=== PATIENT | female | born 1950 | race Caucasian/White ===

== ENCOUNTER → 2021-03-17 11:06 | Outpatient (CLI) | payer MEDICARE, BC, OTHER, SELFPAY | PROVIDERS: Referring Provider Internal Medicine; Visit Provider Internal Medicine | DX: M81.0 Age-related osteoporosis without current pathological fracture (principal); Z78.0 Asymptomatic menopausal state; Z82.62 Family history of osteoporosis | CPT/HCPCS: 77080 ==

== ENCOUNTER → 2022-12-12 15:16 | Outpatient (CLI) | payer MEDICARE, BC, OTHER, SELFPAY ==
[2022-12-12 17:12] LABS: Calcium 10.2 mg/dL (8.4-10.2)
== END ==
PROVIDERS: Referring Provider Nurse Practitioner Family; Visit Provider Nurse Practitioner Family
DX: M81.0 Age-related osteoporosis without current pathological fracture (principal); Z79.899 Other long term (current) drug therapy
CPT/HCPCS: 36415; 82310

== ENCOUNTER → 2023-01-22 10:13 | Outpatient (CLI) | payer MEDICARE, BC, OTHER, SELFPAY ==
--- NOTE | 2023-01-22 10:17 | DI.RAD.S_ITS ---
PROCEDURE: XR THORACIC SPINE 3V INDICATIONS: thoracic back pain TECHNIQUE: 3 views of the thoracic spine were acquired. COMPARISON: [facility], CR, XR LUMBAR SPINE MIN 4V, 01/22/2023, 10:19. Outside Facility, [facility], MRI T-SPINE W/O CONTRAST, 11/02/2022, 17:01. FINDINGS: Bones: No fractures or dislocations. No suspicious bony lesions. 12 pairs of ribs are noted, and appear intact where visualized. Right convexity curvature of the thoracolumbar spine centered at T12-L1. Shaw angle of 47? measured between the superior endplate of T10 and the inferior endplate of L3. Multilevel degenerative changes of the thoracic spine are present. Soft tissues: No paravertebral stripe thickening. IMPRESSION: No thoracic spine vertebral body fracture identified radiographically. Right convexity curvature thoracolumbar spine. If symptoms persist, follow-up radiographs and/or CT or MRI may be helpful for further evaluation. Dictated by: Parish Ruff M.D. on 01/22/2023 at 15:43 Approved by: Parish Ruff M.D. on 01/22/2023 at 15:49
--- NOTE | 2023-01-22 10:17 | DI.RAD.S_ITS ---
PROCEDURE: XR LUMBAR SPINE MIN 4V INDICATIONS: low back pain TECHNIQUE: 5 views of the lumbar spine were acquired, including bilateral oblique views. COMPARISON: [facility], CR, XR THORACIC SPINE 3V, 01/22/2023, 10:19. FINDINGS: Bones: 5 nonrib-bearing vertebrae are present. Right convexity curvature of the thoracolumbar spine as described in the report for same day thoracic radiographs. No definite lumbar vertebral body compression fracture identified, evaluation is challenging due to spine curvature. At least mild multilevel degenerative changes present in the lumbar spine. Soft tissues: Overlying bowel gas pattern is normal. No suspicious soft tissue calcifications. Oblique images: Neural foramina are difficult to evaluate due to curvature of the lumbar spine. Suspect at least mild multilevel bony foraminal narrowing present. IMPRESSION: Right convexity curvature of the thoracolumbar spine, described separately. Curvature makes evaluation of the lumbar spine difficult, no definite lumbar spine vertebral body compression fracture identified. Multilevel degenerative changes of the lumbar spine are present. If symptoms persist, follow-up radiographs and/or CT or MRI may be helpful for further evaluation. Dictated by: Parish Ruff M.D. on 01/22/2023 at 15:49 Approved by: Parish Ruff M.D. on 01/22/2023 at 15:54
== END ==
PROVIDERS: PCP Family Medicine; Referring Provider Anesthesiology; Visit Provider Anesthesiology
DX: M47.816 Spondylosis without myelopathy or radiculopathy, lumbar region (principal); M47.814 Spondylosis without myelopathy or radiculopathy, thoracic region; M54.41 Lumbago with sciatica, right side; M54.6 Pain in thoracic spine; M41.9 Scoliosis, unspecified
CPT/HCPCS: 72072; 72110; 99214

== ENCOUNTER 2023-03-07 09:04 | Outpatient (CLI) | payer MEDICARE, BC, OTHER, SELFPAY ==
--- NOTE | 2023-03-07 09:05 | DI.RAD.S_ITS ---
PROCEDURE: PAIN C/T FACET INJ/BLK 1ST L INDICATIONS: RADICULOPATHY COMPARISON: [facility], CR, XR LUMBAR SPINE MIN 4V, 01/22/2023, 10:19. [facility], CR, XR THORACIC SPINE 3V, 01/22/2023, 10:19. FINDINGS: Fluoroscopic spot filming was performed to verify placement of spinal needles on the right at the levels labeled as T11, T12, and L1. Appropriate location of the needle tips was confirmed by injection of iodinated contrast. IMPRESSION: Intraprocedural examination demonstrating appropriate positions of the needles. Dictated by: Emanuel Kwok M.D. on 03/07/2023 at 19:26 Approved by: Emanuel Kwok M.D. on 03/07/2023 at 19:27
[2023-03-07 09:25] VITALS: BP 159/74; PULSE 78; RESP 16; TEMP 37.2; O2SAT 99
[2023-03-07 09:44] VITALS: BP 186/80; PULSE 64; RESP 19; O2SAT 100
[2023-03-07 09:49] VITALS: BP 163/69; PULSE 69; RESP 14; O2SAT 100
[2023-03-07 09:54] VITALS: BP 167/75; PULSE 65; RESP 19; O2SAT 100
[2023-03-07] MEDS: BUPIVACAINE 0.5% (PF) 10 ML VIAL 5 ML INJ (09:54)
[2023-03-07] MEDS: IOPAMIDOL 15 ML VIAL 3 ML INJ (09:55)
[2023-03-07 10:03] VITALS: BP 138/76; PULSE 82; RESP 16; O2SAT 99
--- NOTE | 2023-03-07 11:26 | P.PCN_ITS ---
Date/Time/Diagnoses Date of procedure: 03/07/23 Time of procedure: 09:30 Procedure Notes Physician: Dyllan Esposito Total Fluoroscopy time (seconds): 20 Total sedation minutes: 0 Procedure in detail & Post-procedure care: Right T11, T12 and L1 Medial Branch Blocks Indications: Vonda is presenting for treatment of thoracolumbar spondylosis with low back pain. Preoperative diagnosis: Right thoracolumbar spondylosis Postoperative diagnosis: Same Pre-procedure History: Patient demonstrates today moderate to severe non- radicular back pain without neurologic deficit aggravated by hyperextension yes Back pain greater than leg pain? yes Patient today has tenderness over the suspected joint(s) yes History of post-traumatic injury? no Hypertrophic arthropathy yes Back pain associated with suspected motion segment instability, hypermobility or pseudoarthrosis no Pre-testing pain score (VAS): 5/10 Focused Examination: Ax3 Mood and affect are normal Vital Signs: VSS Consent: Following review of allergies and potential side effects/complications, including, but not necessarily limited to, infection, allergic reaction, local tissue breakdown, stroke, temporary or permanent nerve injury, paralysis, and possible , the patient indicated that they understood and agreed to proceed.? An informed consent document was signed by the patient, witnessed by a nurse and placed in the patient's chart.? Additionally, other treatment options including medications and physical therapy were reviewed with the patient. All questions were answered. Site was then marked. Anesthesia: Local Position: Prone Monitoring: NIBP, Pulse oximetry, 3 lead EKG Needle used: 22 ga 3.5 inch spinal needle Contrast: Isovue 300M Injectate: 0.5% bupivacaine 1 mL per site Procedure: The patient was brought into the procedure room and positioned into the prone position. Skin was prepped with a Chloraprep solution, allowed to air dry, and then draped in sterile fashion.? The right T12-L1 and L1-2 facet joints were visually identified with fluoroscopy. Lidocaine 1% was used to anesthetize the skin over each target destination with a 25ga needle. A 22 ga, 3.5 inch spinal needle was advanced to the location of the medial branch at the junction of the superior articular process and the transverse process at T12, L1 and L2 using intermittent fluoroscopy in the AP view. Isovue 300M contrast 0.2ml was injected at each level outlining the medial borders for each level in the AP and lateral views. There was no evidence of vascular or intrathecal uptake. The above injectate was slowly injected at each target destination. Post Procedure: Patient was taken to the recovery and monitored. The patient was provided a Pain Log to continue to record the patient's response to the target- specific procedure prior to the patient's follow-up visit with the referring physician. Patient was stable upon discharge. Detailed post procedure instructions were provided. Patient was asked to call in the event of worsening pain, fever, weakness, numbness or bladder or bowel incontinence. Postoperatively, today patient demonstrates the following changes with hyperextension and with tenderness over the suspected joint(s). Provacative testing using the Matthews's facet loading test Right side Directly before the block ?VAS (0-10) = 5/10 5 minutes after the block VAS (0-10) = 0/10 Percentage relief obtained with this diagnostic block 100% Any improved physical functioning directly after the blocks? Range of motion, walking Based on the medial branches blocked today, if the patient meets insurance criteria for radiofrequency, the treatment should result in the denervation of the right T12-L1 and L1-2 facet joint nerves. We would expect to denervate a total of 4 facets during the radiofrequency ablation.
== END 2023-03-07 10:11 | disposition home or self-care (01) ==
LOC: RAD 09:04
PROVIDERS: PCP Family Medicine; Referring Provider Anesthesiology; Visit Provider Anesthesiology
DX: M47.815 Spondylosis without myelopathy or radiculopathy, thoracolumbar region (principal)
CPT/HCPCS: 64490; 64491

== ENCOUNTER → 2023-04-17 11:39 | Outpatient (CLI) | payer MEDICARE, BC, OTHER, SELFPAY ==
--- NOTE | 2023-04-17 | DI.RAD.S_ITS ---
Bone Density Report Name: EVANGELINA LAMB Age: 73 Sex: Female Ethnicity: White Date of : 1950 Indication: osteopenia; monitoring treatment; Referring Provider: LORENZA MCKENZIE Study: Bone densitometry was performed. Exam Date: April 17, 2023 Accession number: [id number] Bone Density: Region BMD T-score Z-score Classification AP Spine(L1-L4) 1.249 1.8 4.0 Normal Femoral Neck (Left) 0.629 -2.0 -0.1 Osteopenia Total Hip (Left) 0.832 -0.9 0.7 Normal Femoral Neck (Right) 0.559 -2.6 -0.8 Osteoporosis Total Hip (Right) 0.739 -1.7 -0.1 Osteopenia Total Hip Mean 0.785 -1.3 0.3 Osteopenia World Health Organization criteria for BMD impression classify patients as: Normal (T-score at or above -1.0), Osteopenia (T-score between -1.0 and -2.5), or Osteoporosis (T-score at or below -2.5). 10-year Fracture Risk: FRAX not reported because: Some T-score for Spine Total or Hip Total or Femoral Neck at or below -2.5 Treated for osteoporosis Previous Exams: -- Region Exam Age BMD T-score BMD Change BMD Change Date g/cm2 vs Baseline vs Previous -- Total Hip(Left) 04/17/2023 73 0.832 -0.9 -0.026 (-3.0%)# -0.026 (-3.0%)# 03/17/2021 70 0.858 -0.7 Total Hip(Right) 04/17/2023 73 0.739 -1.7 0.004 (0.6%)# 0.004 (0.6%)# 03/17/2021 70 0.735 -1.7 -- *Denotes significance at 95% confidence level, LSC for Total Hip = 0.027 g/cm2 # Denotes dissimilar scan types or analysis methods Impression: The patient has osteoporosis, based on the Right Femoral Neck T-score. No significant bone loss was observed. Discussion: PATIENT UNDER TREATMENT WITH NO SIGNIFICANT BMD LOSS SINCE LAST EXAM. In an untreated patient, BMD typically declines with age. A lack of decline or gain is usually a sign that treatment is efficacious and fracture risk is reduced. It is important to ask patients whether they are taking their medications and to encourage continued and appropriate compliance with their osteoporosis therapies to reduce fracture risk. It is also important to review their risk factors and encourage appropriate calcium and vitamin D intakes, exercise, fall prevention and other lifestyle measures. Follow-Up: Consider a repeat BMD and Vertebral Fracture Assessment (VFA) exam in 2 years or sooner if medically necessary, to reassess this patient's status. Reported by: YENI HEARD M.D. on 04/17/2023 12:14:00 PM.
== END ==
PROVIDERS: PCP Family Medicine; Referring Provider Nurse Practitioner Family; Visit Provider Nurse Practitioner Family
DX: M81.0 Age-related osteoporosis without current pathological fracture (principal); Z78.0 Asymptomatic menopausal state; M47.816 Spondylosis without myelopathy or radiculopathy, lumbar region; M47.814 Spondylosis without myelopathy or radiculopathy, thoracic region; M79.18 Myalgia, other site; Z79.899 Other long term (current) drug therapy; Z92.21 Personal history of antineoplastic chemotherapy
CPT/HCPCS: 20553; 76942; 77080; 99213

== ENCOUNTER → 2023-12-18 10:45 | Outpatient (CLI) | payer MEDICARE, BC, OTHER, SELFPAY | PROVIDERS: PCP Family Medicine; Referring Provider Internal Medicine; Visit Provider Internal Medicine | DX: E83.51 Hypocalcemia (principal) | CPT/HCPCS: 36415; 82310 ==

== ENCOUNTER → 2024-04-07 10:46 | Outpatient (CLI) | payer MEDICARE, BC, OTHER, SELFPAY ==
--- NOTE | 2024-04-07 10:47 | DI.RAD.S_ITS ---
PROCEDURE: XR DEXA AXIAL SKELETON INDICATIONS: OSTEOPORISIS SCREENING COMPARISON: [facility], CR, XR DEXA AXIAL SKELETON, 04/17/2023, 12:03. FINDINGS: Lumbar Spine: Bone mineral density 1.365 g/cm2, T score 2.6, compared to 1.8. Left Hip: Bone mineral density 0.835 g/cm2, T score -0.9, unchanged. Left Femoral Neck: Bone mineral density 0.640 g/cm2, T score -1.9, compared to -2.0. Right Hip: Bone mineral density 0.774 g/cm2, T score -1.4, compared to -1.7. Right Femoral Neck: Bone mineral density 0.551 g/cm2, T score -2.7, compared to -2.6. Fracture Risk Calculation (when applicable): 10-year fracture risk of a major osteoporotic fracture 14% and of a hip fracture 4.4% without prior fracture in 22% and 6.6% with prior fracture respectively.. (T score greater or equal to -1.0 to: NORMAL) (T score from -1.1 to -2.4: OSTEOPENIA) (T score less than or equal to -2.5: OSTEOPOROSIS) IMPRESSION: Overall stable/improved bone mineral density compared to prior exam. Follow-up guidelines as follows: Osteoporosis: Consider a repeat DEXA and Vertebral Fracture Assessment (VFA) exam in 2 years or sooner if medically necessary, to reassess this patient's status. Osteopenia: Consider a repeat DEXA in 2-3 years to reassess this patient's status, or if there is a new clinical indication. Normal: Consider a repeat DEXA in 5 years or sooner, or if there is a new clinical indication. All treatment decisions require clinical judgment and consideration of individual patient factors, including patient preferences, comorbidities, previous drug use, risk factors not captured in the FRAX model (e.g., frailty, falls, vitamin D deficiency, increased bone turnover, interval significant decline in bone density ) and possible under- or over-estimation of fracture risk by FRAX. In addition, the NOF Guide recommends that FDA-approved medical therapies be considered in postmenopausal women and men age >= 50 years with a: * Hip or vertebral (clinical or morphometric) fracture * T-score of <=-2.5 at the spine or hip * Ten-year fracture probability by FRAX of >= 3% for hip fracture or >=20% for major osteoporotic fracture. People with diagnosed cases of osteoporosis or at high risk for fracture should have regular bone mineral density tests. For patients eligible for Medicare, routine testing is allowed once every 2 years. The testing frequency can be increased to one year for patients who have rapidly progressing disease, those who are receiving or discontinuing medical therapy to restore bone mass, or have additional risk factors. Dictated by: Holli Chairez M.D. on 04/07/2024 at 21:38 Approved by: Holli Chairez M.D. on 04/07/2024 at 21:39
== END ==
LOC: RAD 10:47
PROVIDERS: PCP Family Medicine; Referring Provider Nurse Practitioner Family; Visit Provider Nurse Practitioner Family
DX: M81.0 Age-related osteoporosis without current pathological fracture (principal); Z79.899 Other long term (current) drug therapy
CPT/HCPCS: 77080

== ENCOUNTER → 2024-12-06 09:51 | Outpatient (CLI) | payer MEDICARE, BC, OTHER, SELFPAY ==
[2024-12-06 10:35] LABS: Add Manual Diff / Slide Review NO; Basophils Absolute Auto 0 /uL (0-100); Basophils Percent Auto 0.9 % (0-2); Eosinophils Absolute Auto 200 /uL (0-450); Eosinophils Percent Auto 3.5 % (2-4); Hematocrit 40.1 % (36-46); Hemoglobin 13.6 g/dL (12.0-16.0); Lymphocytes Absolute Auto 1500 /uL (1100-4500); Lymphocytes Percent Auto 30.6 % (25-40); Mean Corpuscular HGB Conc 33.9 % (30-36); Mean Corpuscular Volume 103.2 fL (80-100); Monocytes Absolute Auto 300 /uL (0-900); Monocytes Percent Auto 6.6 % (3-14); Neutrophils Absolute Auto 2800 /uL (1500-7000); Neutrophils Percent Auto 58.4 % (50-75); Platelet Count 271 X10^3/uL (150-400); Red Blood Cell Count 3.89 X10^6/uL (4.0-5.2); Red Cell Distribution Width 13.3 % (11.6-14.8); White Blood Cell Count 4.8 X10^3/uL (4.5-11.0)
[2024-12-06 10:41] LABS: Prothrombin Time 10.8 SECONDS (9.4-12.5)
[2024-12-06 10:49] LABS: Alanine Aminotransferase 21 IU/L (<35); Albumin 4.5 g/dL (3.5-5.0); Albumin Globulin Ratio 1.9 (1.0-2.8); Alkaline Phosphatase 83 U/L (38-126); Aspartate Aminotransferase 31 IU/L (14-36); BUN Creatinine Ratio 20.9 (6-22); Bilirubin Total 0.8 mg/dL (0.2-1.3); Blood Urea Nitrogen 14 mg/dL (7-17); C-Reactive Protein Quant < 0.5 mg/dL (<1.0); Calcium 10.4 mg/dL (8.4-10.2); Carbon Dioxide 29 mmol/L (22-32); Chloride 101 mmol/L (98-107); Estimated Glomerular Filt Rate > 60 mL/min (>60); Globulin 2.4 g/dL (1.7-4.1); Glucose 88 mg/dL (70-99); HEMOLYSIS < 15 (0-50); Sodium 137 mmol/L (137-145); Total Protein 6.9 g/dL (6.3-8.2)
[2024-12-06 10:51] LABS: Erythrocyte Sedimentation Rate 7 MM/HR (0-20)
[2024-12-06 10:54] LABS: Appearance Urine UA CLEAR; Bilirubin Urine UA NEGATIVE (NEGATIVE); Color Urine UA YELLOW; Glucose Urine UA NEGATIVE (Negative); Ketones Urine UA NEGATIVE (NEGATIVE); Leukocyte Esterase Urine UA NEGATIVE (NEGATIVE); Nitrite Urine UA NEGATIVE (Negative); Occult Blood Urine UA NEGATIVE (Negative); Protein Urine UA NEGATIVE (Negative); Urobilinogen Urine UA 0.2 E.U./dL (0.2)
[2024-12-06 10:55] LABS: Urine Volume 10mL (spun); pH Urine UA 7.5 (4.5-8.0)
[2024-12-06 10:56] LABS: Bacteria Urine None Seen; Culture Indicated Urine Cult Not Indicated; RBC Urine None Seen (0-5/HPF); Squamous Epithelial Cell Urine None Seen (0-5/HPF); WBC Urine None Seen (0-5/HPF)
== END ==
PROVIDERS: PCP Family Medicine; Referring Provider Family Medicine; Visit Provider Family Medicine
DX: Z01.818 Encounter for other preprocedural examination (principal)
CPT/HCPCS: 36415; 80053; 81001; 85025; 85610; 85651; 86140

== ENCOUNTER → 2025-02-17 11:32 | Outpatient (CLI) | payer MEDICARE, BC, OTHER, SELFPAY ==
--- NOTE | 2025-02-17 11:35 | DI.RAD.S_ITS ---
PROCEDURE: XR CHEST 2V INDICATIONS: preop clearance TECHNIQUE: 2 views of the chest were acquired. COMPARISON: None. FINDINGS: Heart, mediastinum and pulmonary vascular: Heart is normal in size and configuration. Mediastinum is unremarkable. Pulmonary vascular is normal. Lungs: Clear Pleural spaces: Normal-no effusions or pneumothorax. IMPRESSION: No cardiopulmonary disease evident. Dictated by: David Luke M.D. on 02/18/2025 at 13:28 Approved by: David Luke M.D. on 02/18/2025 at 13:28
--- NOTE | 2025-02-17 12:24 | EKG_ITS ---
[address] [address] [place] [address] Test Date: 2025-02-17 Pat Name: Vonda Garland Department: [facility] Room: Gender: Female Esol Teacher: SHRUTI : 1950 Requested By: Order Number: [id number] Reading MD: Chava Schuler Measurements Intervals [place] Rate: 74 P: 60 OR: 164 QRS: 48 QRSD: 92 T: 52 QT: 346 QTc: 384 Interpretive Statements Normal sinus rhythm Incomplete right bundle branch block Nonspecific ST abnormality Electronically Signed On 02-18-2025 15:03:04 PDT by Chava Schuler
== END ==
PROVIDERS: PCP Family Medicine; Referring Provider Family Medicine; Visit Provider Family Medicine
DX: Z01.818 Encounter for other preprocedural examination (principal)
CPT/HCPCS: 71046; 93005

== ENCOUNTER → 2025-02-27 15:16 | Outpatient (CLI) | payer MEDICARE, BC, OTHER, SELFPAY ==
--- NOTE | 2025-02-27 15:19 | DI.RAD.S_ITS ---
PROCEDURE: XR SHOULDER RT MIN 2V INDICATIONS: RIGHT SHOULDER PAIN TECHNIQUE: 3 views of the shoulder were acquired. COMPARISON: [facility], CR, XR LUMBAR SPINE MIN 4V, 02/27/2025, 15:16. FINDINGS: Bones: No fractures or dislocations. No suspicious bony lesions. Visualized ribs appear intact. Generalized degenerative changes are seen. Soft tissues: No suspicious soft tissue calcifications. IMPRESSION: Generalized degenerative changes are seen by plain film, without an acute abnormality seen. If it would be helpful for clinical management decision making, please consider a dedicated, scheduled shoulder MRI for further evaluation (assuming that there is no contraindication). Dictated by: Emanuel Kwok M.D. on 02/27/2025 at 14:41 Approved by: Emanuel Kwok M.D. on 02/27/2025 at 14:41
--- NOTE | 2025-02-27 15:19 | DI.RAD.S_ITS ---
PROCEDURE: XR LUMBAR SPINE MIN 4V INDICATIONS: BACK PAIN TECHNIQUE: 5 views of the lumbar spine were acquired, including bilateral oblique views. COMPARISON: [facility], CR, XR SHOULDER RT 2+ VIEWS, 02/27/2025, 15:16. [facility], CR, XR LUMBAR SPINE MIN 4V, 01/22/2023, 10:19. FINDINGS: Bones: 5 nonrib-bearing vertebrae are present. No vertebral body compression fractures. No suspicious bony lesions. Significant dextroconvex scoliosis is seen. Mild retrolisthesis can be seen at L1-L2, L2-L3, and L3-L4. Moderate to severe disc space narrowing can be seen at L1-L2, L2-L3, L3-L4, and L2 L5. Mild disc space narrowing can be seen at L5-S1. Lower lumbar spine facet arthropathy is seen. Soft tissues: Overlying bowel gas pattern is normal. No suspicious soft tissue calcifications. Oblique images: No pars defects. IMPRESSION: Dextroconvex scoliosis and multiple levels of significant degenerative change can be seen by plain film. Dictated by: Emanuel Kwok M.D. on 02/27/2025 at 14:41 Approved by: Emanuel Kwok M.D. on 02/27/2025 at 14:43
== END ==
LOC: RAD 15:18
PROVIDERS: PCP Family Medicine; Referring Provider Physical Medicine & Rehabilitation; Visit Provider Physical Medicine & Rehabilitation
DX: M25.511 Pain in right shoulder (principal); M47.816 Spondylosis without myelopathy or radiculopathy, lumbar region; M99.03 Segmental and somatic dysfunction of lumbar region; M41.9 Scoliosis, unspecified; M19.011 Primary osteoarthritis, right shoulder
CPT/HCPCS: 72110; 73030

== ENCOUNTER → 2025-03-01 14:28 | Outpatient (CLI) | payer MEDICARE, BC, OTHER, SELFPAY ==
--- NOTE | 2025-03-01 14:32 | DI.MRI.S_ITS ---
PROCEDURE: MR THORACIC SPINE WO CON INDICATIONS: SCIATICA TECHNIQUE: Noncontrast sagittal T1 spine echo and T2 fast spin echo, sagittal STIR, and T2 fast spin echo through the thoracic spine. COMPARISON: [facility], XR THORACIC SPINE 3V, 01/22/2023, 10:19. FINDINGS: Image quality: Excellent. Alignment and Curvature: Moderate thoracolumbar dextroscoliosis. Normal AP alignment. Bone Marrow: Marrow is of normal overall signal. No acute vertebral body compression fractures. Mild degenerative endplate spurring at T8-9. Spinal Cord: There is a very thin central syrinx from T7 through T9. The cord is otherwise normal size and signal. Paraspinous Soft Tissues: No paravertebral masses. Miscellaneous: On axial images, there is a small, broad-based, posterior irregular disc bulge at the T8-9 level. Minimal deformity of the spinal cord shape. No significant central canal stenosis. Other thoracic levels are unremarkable. IMPRESSION: Moderate thoracolumbar scoliosis. Very mild progression of degenerative disc and endplate change at T8-9 since the prior exam. Chronic, small central syrinx, unlikely to be clinically significant. Dictated by: Roberta Muhammad M.D. on 03/02/2025 at 15:38 Approved by: Roberta Muhammad M.D. on 03/02/2025 at 15:48
--- NOTE | 2025-03-01 14:32 | DI.MRI.S_ITS ---
PROCEDURE: MR LUMBAR SPINE WO CON INDICATIONS: SCIATICA TECHNIQUE: Noncontrast sagittal T1 spin echo and T2 fast echo, sagittal STIR, and T2 fast spin echo through the lumbar spine. In cases with scoliosis, additional coronal T2 fast spin echo may be performed. COMPARISON: None. FINDINGS: Image quality: Excellent. Alignment and Curvature: Moderate S-shaped roto- scoliosis. The AP alignment is grossly normal. Trace right lateral subluxation L3 on four. Bone Marrow: Type 1 endplate Modic changes at L3-4, as well as bandlike osseous edema in L3 vertebral body. Moderate lateral endplate spurs. Spinal Cord: Conus medullaris terminates at the L1 level. Visualized cord demonstrates normal signal and size. Paraspinous Soft Tissues: No paravertebral masses. T12-L1: Disc desiccation and mild disc height loss with small circumferential disc bulge. Small focal right lateral annular tear without herniation. L1-L2: Disc desiccation with severe disc height loss. Mild to moderate circumferential disc osteophyte without significant disc herniation. L2-L3: Disc desiccation and severe disc height loss. Moderate circumferential disc osteophyte. L3-L4: Disc desiccation and moderate to severe disc height loss. Moderate to severe facet arthropathy. Right lateral recess narrowing and moderate central canal stenosis. Probably severe right foraminal stenosis. L4-L5: Mild asymmetric disc height loss. Prominent right facet arthropathy. Mild circumferential disc bulge. Narrowing of the right central canal and lateral recess due to facet arthropathy. Moderate right foraminal stenosis. L5-S1: Mild facet arthropathy. IMPRESSION: Degenerative appearing scoliosis and moderate to severe multilevel right foraminal and lateral recess narrowing. Moderate central canal stenosis at L3-4. Subacute osseous edema in L3. Dictated by: Roberta Muhammad M.D. on 03/02/2025 at 15:48 Approved by: Roberta Muhammad M.D. on 03/02/2025 at 16:28
== END ==
LOC: MRI 14:29
PROVIDERS: PCP Family Medicine; Referring Provider Family Medicine
DX: M51.14 Intervertebral disc disorders with radiculopathy, thoracic region (principal); G95.0 Syringomyelia and syringobulbia; M51.16 Intervertebral disc disorders with radiculopathy, lumbar region; M48.061 Spinal stenosis, lumbar region without neurogenic claudication; M47.27 Other spondylosis with radiculopathy, lumbosacral region; M47.26 Other spondylosis with radiculopathy, lumbar region; M41.85 Other forms of scoliosis, thoracolumbar region; M54.04 Panniculitis affecting regions of neck and back, thoracic region
CPT/HCPCS: 72146; 72148